=== PATIENT | male | born 1945 | race Caucasian/White ===

== ENCOUNTER 2016-10-01 06:07 | Day surgery (SDC) | payer OTHER, MEDICARE ==
[2016-09-29 08:39] LABS: HEMATOCRIT 44.9 % (40.0-51.0); HEMOGLOBIN 13.9 g/dL (13.6-17.8)
[2016-09-29 08:42] LABS: PARTIAL THROMBO TIME 25.9 SEC (22.5-37.2)
[2016-09-29 08:52] LABS: BUN (BLOOD UREA NITROGEN) 20 MG/DL (6-23); CHLORIDE, SERUM 107 MMOL/L (96-112); CO2 (CARBON DIOXIDE) 33 MMOL/L (24-34); CREATININE 1.31 MG/DL (0.70-1.30); GFR AFRICAN AMERICAN 64 ML/MIN (>=60); GFR NON AFRICAN AMERICAN 55 ML/MIN (>=60); GLUCOSE, SERUM 112 MG/DL (60-99); POTASSIUM, SERUM 4.9 MMOL/L (3.5-5.3); SODIUM, SERUM 142 MMOL/L (135-148)
--- NOTE | ~2016-10-01 | OP ---
Record Of Operation [facility] [address] [place]. [address] NAME: GEORGE MOJICA : 49 STATUS : [facility]#: [id number] AGE: 71 ADM/REG DATE : 10/01/16 MR#: [id number] REPORT SERV DATE: 10/05/16 DICTATED BY: CHUCHO MONTEMAYOR DATE: 10/04/16 REPORT STATUS : Draft TRANSCRIBED BY: MODTaylor DATE: 10/04/16 DATE OF PROCEDURE: 10/01/2016 PREOPERATIVE DIAGNOSES: 1. Deviated nasal septum. 2. Bilateral inferior turbinate hypertrophy. 3. Chronic rhinosinusitis. POSTOPERATIVE DIAGNOSES: 1. Deviated nasal septum. 2. Bilateral inferior turbinate hypertrophy. 3. Chronic rhinosinusitis. PROCEDURES: 1. Septoplasty. 2. Inferior turbinate reduction. 3. Endoscopic bilateral maxillary antrostomy with tissue removal. SURGEON: Chucho Montemayor M.D. ANESTHESIA: General endotracheal anesthesia was utilized. ESTIMATED BLOOD LOSS: 35 mL. COMPLICATIONS: No complications. Deviated nasal septum to the left 3+, bilateral inferior turbinate hypertrophy, and Restrepo splints placed. INDICATIONS FOR PROCEDURE: A 71-year-old gentleman with nasal obstruction with severely deviated left-sided nasal septum, turbinate hypertrophy, and chronic rhinosinusitis seen on CT despite maximum medical therapy and continued nasal obstruction. He has indication of procedure described. He described the risks and benefits of procedure including blood loss, infection, risk of anesthesia, continued nasal obstruction, pain, and bleeding postoperatively. He voiced understanding of these things and signed the consent. The consent was placed in the chart at the time of the operation. DESCRIPTION OF PROCEDURE: The patient was wheeled to the OR suite, placed on the OR table in supine position. He was intubated and placed under general endotracheal anesthesia without difficulty. He had been sprayed with Afrin nasal spray in his nasal cavity 30 minutes prior to the procedure and I would spray him once again just after intubation. Then, I would place 4% cocaine-soaked cottonoids in both sides of the nasal cavity for approximately 3 minutes to 5 minutes at the beginning of the procedure. The table was turned 90 degrees as I had described and he was prepped and draped in a standard fashion for endoscopic sinus surgery with septoplasty and turbinate reduction. The cocaine-soaked cottonoids were removed from his nasal cavity and we began on the right hand side with our maxillary Record Of Operation [facility] [address] [place]. [address] NAME: GEORGE MOJICA : 49 STATUS : [facility] PAT#: [id number] AGE: 71 ADM/REG DATE : 10/01/16 MR#: [id number] REPORT SERV DATE: 10/05/16 DICTATED BY: CHUCHO MONTEMAYOR DATE: 10/04/16 REPORT STATUS : Draft TRANSCRIBED BY: MAURI DATE: 10/04/16 antrostomy. I would inject the middle turbinate and the uncinate using 2 mL of local, which was 1% lidocaine with 1:100,000 epinephrine. I would medialize the middle turbinate, elevate the uncinate, and come through the uncinate using a backbiter. I would complete my uncinectomy using combination of backbiter, microdebrider, and straight Isaac-Cut. I identified the maxillary sinus using a sinus seeker and widened this using a backbiter, straight Isaac-Cut, and microdebrider. I then irrigated out the maxillary sinus on this side. Tissue was sent as right-sided nasal content. I then turned my attention to the septum. I would inject both sides of the septum 2 mL each side with local. I would make a Rodrigo- type incision on the left-hand side, elevate ipsilateral flap using 0 degree endoscope back to around the areas of deviation and down to the floor. I would make a vertical incision at the cartilage using a 15 blade and widen this using a [place] elevating the contralateral mucoperichondrial and mucoperiosteal flap in these areas. I then started to come to the curved portion of the septum using combination of Delbert's and osteotome to remove the bent portions of curved septum and bone until all bent portions were removed. Visualized the nasal cavity using 0 degree and just kept during this time until the flaps came back and I had a straight septum, as straight as I could achieve, and I had removed the maxillary crest during this time as well. I irrigated all areas. I would close the soft tissue flaps of the septum using three simple mattress sutures, which were 4-0 chromic gut sutures. I would then turn my attention to the maxillary sinus on the left-hand side. I inject the middle turbinate and the uncinate using 1 mL of local. I medialized the middle turbinate. I elevated the uncinate using a sinus seeker. I came through the uncinate using a backbiter, I completed my uncinectomy using combination of backbiter and microdebrider. I identified the maxillary os using a sinus seeker and once again widened the antrostomy using a backbiter and Isaac-Cut, and completed the antrostomy using a microdebrider. I was careful not to touch the posterior fontanelle area. I did inject a small amount of local in both posterior fontanelle areas as well. I irrigated out both the maxillary sinuses, suctioned this thoroughly, and then turned my attention to the nasal cavity. Once again, I suctioned any blood or secretions out of the nasal cavity. I would place my Restrepo splints, which were covered in bacitracin. These were fixed to the caudal septum using 3-0 nylon sutures. It was important to note that I did perform inferior turbinate reduction using the Coblator first on the right hand side. I injected the inferior turbinate with local. I would perform three passes with the turbinate Coblator, two anteriorly, I outfractured the inferior turbinate more posteriorly. The posterior-inferior turbinate with left inferior turbinate with similar findings and similar results, and this site was outfractured as well, and my splints, as I said, were placed. I suctioned out the pharynx. The procedure was complete. He was turned 90 degrees, returned to the care of the anesthesiologist, subsequently awoken, extubated, stably transferred to Recovery. Estimated blood loss, 35 mL. There were no complications. The patient tolerated the procedure well. EUSEB[place]/MAURI Chucho Montemayor M.D. Record Of [address] [address] NAME: GEORGE MOJICA DOB: [birth year] STATUS : [facility] PAT#: [id number] AGE: 71 ADM/REG DATE : 10/01/16 MR#: [id number] REPORT SERV DATE: 10/05/16 DICTATED BY: CHUCHO MONTEMAYOR DATE: 10/04/16 REPORT STATUS : Draft TRANSCRIBED BY: MAURI DATE: 10/04/16 / [id number] CC: Manuel Farfan
[~2016-10-01 06:07] MED LIST: LISINOPRIL40 MG PO; PLAVIX PO
== END 2016-10-01 11:46 | disposition home or self-care (01) ==
LOC: SDC 06:07
PROVIDERS: Otolaryngology
PROC: 095L8ZZ Destruction of Nasal Turbinate, Via Natural or Artificial Opening Endoscopic (ICD-10-PCS; 2016-10-01)
PROC: 09QL8ZZ Repair Nasal Turbinate, Via Natural or Artificial Opening Endoscopic (ICD-10-PCS; 2016-10-01)
PROC: 099R4ZZ Drainage of Left Maxillary Sinus, Percutaneous Endoscopic Approach (ICD-10-PCS; principal; 2016-10-01 07:15)
PROC: 099Q4ZZ Drainage of Right Maxillary Sinus, Percutaneous Endoscopic Approach (ICD-10-PCS; 2016-10-01 07:15)
DX: J34.2 Deviated nasal septum (principal); J32.8 Other chronic sinusitis; I10 Essential (primary) hypertension; I71.4 Abdominal aortic aneurysm, without rupture; G47.30 Sleep apnea, unspecified; K21.9 Gastro-esophageal reflux disease without esophagitis; J45.909 Unspecified asthma, uncomplicated; Z87.891 Personal history of nicotine dependence; Z98.890 Other specified postprocedural states; Z79.899 Other long term (current) drug therapy
CPT/HCPCS: 80048; 85014; 85018; 85730; 88305; A9270-GY; J0690; J2250; J2370; J2405; J2710; J3010